=== PATIENT | male | born 1970 | race Caucasian/White ===

== ENCOUNTER 2018-02-21 09:38 | Emergency (ER) | payer BC ==
[2018-02-21 11:27] VITALS: BP 115/73
--- NOTE | 2018-02-21 11:44 | UC ---
Ear Complaint HPI - HPI Summary HPI Summary: Patient urgent care with complains of left ear pain is radiating down into his throat. Also complains of sore throat, does have nasal congestion - History of Current Complaint Chief Complaint: UCEar Stated Complaint: L EAR COMPLAINT Time Seen by Provider: 02/21/18 11:34 Hx Obtained From: Patient Onset/Duration: Gradual Onset, Lasting Days Severity Initially: Moderate Severity Currently: Moderate Pain Intensity: 6 Pain Scale Used: 0-10 Numeric Associated Signs/Symptoms: Positive: Hearing Loss - Allergies/Home Medications Allergies/Adverse Reactions: Allergies Allergy/AdvReac Type Severity Reaction Status Date / Time piperacillin [From Zosyn] Allergy Hives Verified 02/21/18 11:18 Sulfa (Sulfonamide Allergy Hives Verified 02/21/18 11:18 Antibiotics) tazobactam [From Zosyn] Allergy Hives Verified 02/21/18 11:18 PMH/Surg Hx/FS Hx/Imm Hx Previously Healthy: No Endocrine History: Hypothyroidism Cardiovascular History: Hypertension GI/ History: Gastroesophageal Reflux - Surgical History Surgical History: Yes Surgery Procedure, Year, and Place: right inguinal hernia at 6 yrs. Gallbladder. Melanoma removed RIGHT shoulder - Family History Known Family History: Positive: None - Social History Occupation: Employed Full-time Lives: With Family Alcohol Use: Weekly Substance Use Type: None Smoking Status (MU): Never Smoked Tobacco - Immunization History Most Recent Influenza Vaccination: never Most Recent Tetanus Shot: unknown Most Recent Pneumonia Vaccination: never Review of Systems Constitutional: Negative Skin: Negative Eyes: Negative ENT: Sore Throat, Ear Ache - Left, Nasal Discharge, Sinus Congestion Respiratory: Negative Cardiovascular: Negative Gastrointestinal: Negative Genitourinary: Negative Motor: Negative Neurovascular: Negative Musculoskeletal: Negative Neurological: Negative Psychological: Negative Is Patient Immunocompromised?: No All Other Systems Reviewed And Are Negative: Yes Physical Exam Triage Information Reviewed: Yes Appearance: Well-Appearing, No Pain Distress, Well-Nourished Vital Signs: Initial Vital Signs Temp 97.2 F 02/21/18 11:21 Pulse 86 02/21/18 11:21 Resp 16 02/21/18 11:21 BP 115/73 02/21/18 11:21 Pulse Ox 100 02/21/18 11:21 Vital Signs Reviewed: Yes Eye Exam: Normal Eyes: Positive: Conjunctiva Clear ENT Exam: Normal ENT: Positive: Normal ENT inspection, Hearing grossly normal, Pharyngeal erythema, Nasal congestion, TMs normal - Bilateral cerumen impactions. Both ears irrigated and cerumen removed with ears scope both TMs are within normal limits canals look fine. Patient reports better hearing, Uvula midline. Negative: Tonsillar swelling, Tonsillar exudate, Trismus, Muffled voice, Hoarse voice, Dental tenderness, Sinus tenderness Dental Exam: Normal Neck exam: Normal Neck: Positive: Supple, Nontender Respiratory Exam: Normal Respiratory: Positive: Chest non-tender, Lungs clear, Normal breath sounds, No respiratory distress, No accessory muscle use Cardiovascular Exam: Normal Cardiovascular: Positive: RRR, No Murmur, Pulses Normal, Brisk Capillary Refill Musculoskeletal Exam: Normal Musculoskeletal: Positive: Strength Intact, ROM Intact Neurological Exam: Normal Neurological: Positive: Alert, Muscle Tone Normal Psychological Exam: Normal Skin Exam: Normal Diagnostics - Laboratory Diagnostic Studies Completed/Ordered: Rapid strep negative Re-Evaluation - Re-Evaluation First Eval Change: Improved - Hearing better after cerumen removed sore throat and earache continues Ear Complaint Course/Dx - Course Course Of Treatment: Cerumen removal information provided, eustachian tube dysfunction information provided, Mucinex D Flonase nasal spray Tylenol ibuprofen for pain. follow with PCP when necessary - Differential Dx/Diagnosis Provider Diagnoses: Eustachian tube dysfunction, bilateral cerumen impactions resolved Discharge - Sign-Out/Discharge Documenting (check all that apply): Discharge/Admit/Transfer - Discharge Plan Condition: Stable Disposition: HOME Prescriptions: Fluticasone NASAL SPRAY 50MCG* [Flonase NASAL SPRAY 50MCG*] 2 spray BOTH NARES DAILY #1 btl Patient Education Materials: Decongestant/Expectorant (By mouth), Cerumen Impaction (ED), Barotitis Media (ED) Referrals: Jacqui Mcintyre MD [Primary Care Provider] - If Needed - Billing Disposition and Condition Condition: STABLE Disposition: HOME
== END 2018-02-21 12:51 | disposition home or self-care (01) ==
LOC: UCCORT 09:38
DX: H69.90 Unspecified Eustachian tube disorder, unspecified ear (principal); H61.23 Impacted cerumen, bilateral; Z88.0 Allergy status to penicillin; Z88.2 Allergy status to sulfonamides
CPT/HCPCS: 87651; 99213; G0463

== ENCOUNTER 2018-04-05 06:33 | Day surgery (SDC) | payer BC ==
[~2018-04-05 06:33] MED LIST: Buffered Lidocaine 0.9% SYRIN* 5 ML/SYR SYRINGE INTRADERM ONE; Famotidine IV* 10 MG/ML 2 ML (20 mg) IV ONE
[2018-04-05] MEDS ORDERED: Famotidine IV* 10 MG/ML 2 ML (20 mg) ONE (06:37)
[2018-04-05] MEDS ORDERED: Bupivacaine 0.25% SDV* 30 ML ONE (06:42)
[2018-04-05] MEDS ORDERED: Lidocaine 1% MPF wEPI 200,000* 30 ML SDV ONE (06:43)
[2018-04-05] MEDS ORDERED: ceFAZolin 2 GM PREMIX (*) 2 GM/50 ML BAG IVPB ONE (07:10)
[2018-04-05] MEDS ORDERED: fentaNYL* 50 MCG/ML 2 ML VIAL (100 MCG VIAL) ONE ×3 (07:27→08:59)
[2018-04-05] MEDS ORDERED: Midazolam* 1 MG/ML 5 ML VIAL (5 MG) ONE (07:27)
[2018-04-05] MEDS ORDERED: KETAMINE HCL* 50 MG/ML 10 ML VIAL ONE (07:54)
[2018-04-05] MEDS ORDERED: Succinylcholine* 20 MG/ML 10 ML VIAL ONE (08:36)
[2018-04-05] MEDS ORDERED: DiMENhydriNATE IV* 50 MG/ML VIAL ONE (08:36)
[2018-04-05] MEDS ORDERED: Dexamethasone IV* 4 MG/ML 1 ML (4 MG) ONE (08:36)
[2018-04-05] MEDS ORDERED: Propofol* 10 MG/ML 20 ML BTL IV PUSH ONE (08:36)
[2018-04-05] MEDS ORDERED: Ketorolac INJ* 30 MG/ML 1 ML VIAL ONE (08:36)
[2018-04-05] MEDS ORDERED: Lidocaine 2% MPF* 2 ML VIAL ONE (08:36)
[2018-04-05] MEDS ORDERED: HYDROmorphone INJ* 1 MG/ML CARPUJECT SYRINGE ONE (09:02)
[2018-04-05] MEDS ORDERED: Ondansetron INJ* 2 MG/ML VIAL IV PRN (09:09)
[2018-04-05] MEDS ORDERED: oxyCODONE TAB* 5 MG TAB PO PRN (09:09)
[2018-04-05] MEDS ORDERED: Naloxone* 0.4 MG/ML 1 ML VIAL IV PRN (09:09)
[2018-04-05] MEDS ORDERED: fentaNYL* 50 MCG/ML 2 ML VIAL (100 MCG VIAL) IV PRN (09:09)
[2018-04-05] MEDS ORDERED: Acetaminophen TAB* 325 MG PO PRN (09:09)
[2018-04-05] MEDS ORDERED: oxyCODONE/Acetamin 5/325 MG* TAB ONE (09:40)
[2018-04-05 10:24] VITALS: BP 153/94
--- NOTE | 2018-04-05 11:57 | OP ---
CC: PCP, Jacqui Mcintyre MD * DATE OF OPERATION: 04/05/18 - [facility] DATE OF : 72 SURGEON: Mukul Lamb MD. MANAGER TRAINEE: AMOS Thompson. An assistant track and field coach was needed for the entirety of this case to help with positioning, retraction and was utilized throughout all portions of the case. ANESTHESIOLOGIST: Dr. Denise. ANESTHESIA: General. PRE-OP DIAGNOSIS: Right knee grade 3 anterior cruciate ligament rupture, chronic with an acute displaced bucket handle medial meniscus tear. POST-OP DIAGNOSES: 1. 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 2. Lateral meniscal root fraying. OPERATIVE PROCEDURE: 1. Right knee arthroscopy with partial medial meniscectomy and partial lateral meniscectomy. 2. ACL reconstruction with BTB allograft. COMPLICATIONS: None. ESTIMATED BLOOD LOSS: Minimal. TOURNIQUET TIME: 0 minutes. IMPLANTS USED: One [employer] and Nephew SoftSilk 7 x 25 and one 9 x 25. INDICATIONS: Yaya Hebert is a 48-year-old male who has had previous injury to his ACL about 12 to 15 years ago while playing soccer, but then he recently reinjured on 03/30/18 and he since had a locked knee. He had limited range of motion, painful weightbearing. MRI was done that demonstrates displaced medial meniscus tear as well as grade 3 chronic ACL rupture. Risks and benefits of surgery were discussed at length to include but are not limited to bleeding, infection, damage to nerves, vessels, surrounding structures, wound nonhealing, persistent pain, need for further surgery, scarring, stiffness, incomplete relief of symptoms, risk of anesthesia, retear, scarring, persistent pain, need for surgery, risk of DVT, risk of anesthesia. DESCRIPTION OF PROCEDURE: The patient was greeted in the preoperative area by the attending surgeon. The correct extremity was marked, consent was confirmed. The patient brought back to the operating suite where he was placed in a supine position on the operating room table. He then underwent general anesthesia and LMA intubation, after which a non-sterile tourniquet was placed high on the proximal thigh. A lateral post was positioned. A gold bag was placed at the base of the bed. The right leg was prepped and draped in the usual sterile fashion beginning with chlorhexidine soap, scrub and alcohol wipe , and a final prep with ChloraPrep. After appropriate surgical pause indicating side and site of procedure, and administration of antibiotics, the knee was intraarticularly injected with 1% lidocaine with epi. The graft had been thawed during the prepping process and was being prepared on the back table by the assistant track and field coach to allow for bone block as a 9 x 24 femur and 10 x 30 of the tibia. The lateral portal was then made sharply with an 11 blade. The scope was introduced into the joint. The joint was examined. The patellofemoral joint had grade 0 changes with the exception inferiorly, there was a little bit of fraying of grade 1 and 2 of the inferior pole of the patella. The medial and lateral gutters were intact without any loose debris. The scope was brought to the notch. There was abundant fat pad. The anteromedial portal was made using 18-gauge needle for localization. A shaver was used to debride the fat pad that was present and the small ACL stump that was still there on the tibia. There was a displaced bucket handle medial meniscus tear which also had a horizontal split through that as well. This was then reduced but was found to be poor quality tissue and was not amenable for repair. Stacey and biters were then used to do a subtotal medial meniscectomy to remove the unstable flaps. At this point, the condyle was examined. There were grade 1 changes to the medial femoral condyle and medial plateau. Once the meniscectomy was completed, attention was directed laterally. The lateral femoral condyle had grade 0 to 1 changes. The lateral plateau had grade 1 changes, a very small area by the root that had grade 2 changes with some mild fraying. A shaver was used to debride this back as well as a look at the root of the meniscus that had fraying as well as the body. These were debrided back using a shaver. The remainder of the meniscus was intact. At this point, the knee was placed in 90 degrees and the lateral wall was prepared. The shaver and electrocautery device were used to skeletonize the lateral wall. There was a stenotic notch in the back. Therefore the brandin was used to do a small notchplasty to allow for better ACL passage. Once this was done, the starting awl was used to fly the provisional placement of the footprint. This was checked by changing the scope from the lateral to the medial portal to visualize its relation to the back wall. After this was done, attention was directed to the tibia. The tip to tip guide was set to about 52 degrees. A separate incision was made splitting the difference between the tibial tubercle on the posterior medial border of the tibia. The soft tissue was carefully dissected and the guide was placed again. This was then drilled to the center of the footprint using the distance from the PCL as well as the borders of the posterior aspect of the remaining meniscus as a landmark. Once the appropriate position was identified , this was overdrilled with a size 10 mm full-bore reamer. The shaver and rasp were used to rasp the tunnel to allow for easier graft passage. The tunnel was visualized and found to be in good position. At this point, the straight guidewire was placed into the knee into the provisional femoral tunnel. The knee was then hyperflexed. A Beath pin was then placed to the center of the femoral tunnel and this was then overdrilled with a 9 mm low profile reamer to a depth of about 27 mm. All excess bone and debris was removed. This tunnel had a good back wall and was found to have appropriate placement. The production support engineer was then used to notch the tunnel. Excess bone and debris was removed. A #2 Ethibond suture was placed through the eyelet of the Beath pin and advanced through the femur and out the lateral side. The sutures were then passed anterograde and the graft that had previously placed under tension was then brought to the surgery operating table and then passed under direct visualization to be well seated in the femoral tunnel. This was then secured with a 7 x 25 mm SoftSilk screw. This graft had good position. Images were taken. The knee was then cycled approximately 20 times with no shift or movement of the graft. The scope was brought back into the joint to make sure that the graft was still appropriately positioned. The knee was then placed in gentle flexion about 20 degrees with tension on the tibial sutures. The tibial portion was secured with a 9 x 25 mm screw. The screws were both placed with excellent purchase. The knee was then taken through range of motion from 0 to 130 degrees. At 140 degrees, Chaim was assessed and found to be stable. The scope was brought back to the joint and graft visualized and found to be in appropriate position. The knee was taken to full extension, there was no evidence of impingement anteriorly. The wounds were copiously irrigated and excess bone block in the tibial wound was then removed using a saw. The wounds were copiously irrigated. The portals were closed with 3-0 nylon. The tibia wound was closed with 2-0 Vicryl and 0 Monocryl and sterile dressing were applied. The wound was injected with 0.25% Marcaine plain. Sterile dressings, a Cryo/Cuff, and a hinged knee brace was applied locked in extension. He was awoken from anesthesia, transferred back in stable condition. POSTOPERATIVE PLAN: He will be weightbearing as tolerated. He will start physical therapy this week. DVT prophylaxis was considered but deferred due to no previous personal or family history. He will be discharged on pain medications and antibiotics. I will see the patient back in approximately 6 to 8 days. [id number]/CPS #: [id number] MTDD
== END 2018-04-05 10:21 | disposition home or self-care (01) ==
LOC: OREAST 06:33
PROVIDERS: ATTEND Orthopaedic Surgery
DX: M23.611 Other spontaneous disruption of anterior cruciate ligament of right knee (principal); S83.231A Complex tear of medial meniscus, current injury, right knee, initial encounter; S83.281A Other tear of lateral meniscus, current injury, right knee, initial encounter; X50.9XXA Other and unspecified overexertion or strenuous movements or postures, initial encounter; Y92.9 Unspecified place or not applicable; I10 Essential (primary) hypertension; G47.33 Obstructive sleep apnea (adult) (pediatric); E03.9 Hypothyroidism, unspecified
CPT/HCPCS: A9270-GY; C1713; C1776; J0330; J0690; J1100; J1170; J1240; J1885; J2001; J2250; J2704; J3010

== ENCOUNTER 2019-11-26 12:01 | Emergency (ER) | payer BC ==
--- NOTE | 2019-11-26 13:12 | ED ---
Adult Trauma - HPI Summary HPI Summary: Patient is a 49-year-old male who presents emergency department for evaluation after a fall from 4 feet. Patient states he was standing 4 feet on a ladder when he accidentally fell landing on his left side. Patient denies striking his head or loss of consciousness. He is not anticoagulated. No significant past medical history. Patient complains of mild left-sided rib pain, elbow and hip pain. Denies neck pain, shortness of breath, abdominal pain, numbness, tingling or weakness. Symptoms are mild to moderate in severity. Movement makes symptoms worse. Rest makes symptoms better. Patient took Aleve prior to arrival. - History of Current Complaint Chief Complaint: EDFall Stated Complaint: FALL INJURY PER PT Time Seen by Provider: 11/26/19 12:55 Hx Obtained From: Patient Pain Intensity: 7 - Allergy/Home Medications Allergies/Adverse Reactions: Allergies Allergy/AdvReac Type Severity Reaction Status Date / Time morphine Allergy Hives Verified 11/26/19 12:07 piperacillin [From Zosyn] Allergy Hives Verified 11/26/19 12:07 Sulfa (Sulfonamide Allergy Hives Verified 11/26/19 12:07 Antibiotics) tazobactam [From Zosyn] Allergy Hives Verified 11/26/19 12:07 PMH/Surg Hx/FS Hx/Imm Hx Previously Healthy: Yes Endocrine/Hematology History: Reports: Hx Thyroid Disease - hypothyroidism Denies: Hx Diabetes Cardiovascular History: Reports: Hx Hypertension - ON MEDICATION Denies: Hx Pacemaker/ICD Respiratory History: Reports: Hx Sleep Apnea - MILD GI History: Reports: Other GI Disorders History: Reports: Other Problems/Disorders - issues with residual over the past 3 years Denies: Hx Renal Disease Musculoskeletal History: Reports: Other Musculoskeletal History - RIGHT KNEE INJURY Sensory History: Denies: Hx Contacts or Glasses, Hx Hearing Aid Opthamlomology History: Denies: Hx Contacts or Glasses Neurological History: Denies: Hx Headaches, Hx Migraine, Hx Nerve Disease, Hx Seizures, Other Neuro Impairments/Disorders Psychiatric History: Denies: Hx Anxiety, Hx Depression, Hx Panic Disorder - Cancer History Cancer Type, Location and Year: SKIN REMOVED - Surgical History Surgery Procedure, Year, and Place: right inguinal hernia at 6 yrs. Gallbladder. Melanoma removed RIGHT shoulder. LASIK EYE SURGERY LEFT Hx Anesthesia Reactions: No Infectious Disease History: No Infectious Disease History: Denies: Traveled Outside the [place] in Last 30 Days - Family History Known Family History: Positive: None, Non-Contributory - Social History Occupation: Employed Full-time Lives: With Family Alcohol Use: Occasionally Substance Use Type: Reports: None Smoking Status (MU): Never Smoked Tobacco Have You Smoked in the Last Year: No Review of Systems Cardiovascular: Negative Negative: Chest Pain Respiratory: Negative Negative: Shortness Of Breath Gastrointestinal: Negative Negative: Abdominal Pain Genitourinary: Negative Positive: Other - Left elbow, hip and rib pain. Skin: Negative Neurological: Negative Negative: Headache, Weakness, Paresthesia, Numbness All Other Systems Reviewed And Are Negative: Yes Physical Exam Triage Information Reviewed: Yes Vital Signs On Initial Exam: Initial Vitals Temp Pulse Resp BP Pulse Ox 97.7 F 79 16 152/108 97 11/26/19 12:06 11/26/19 12:06 11/26/19 12:06 11/26/19 12:06 11/26/19 12:06 Vital Signs Reviewed: Yes Appearance: Positive: Well-Appearing - Pt. sitting up in bed in NAD. present. Skin: Positive: Warm, Dry Head/Face: Positive: Normal Head/Face Inspection Eyes: Positive: Normal, EOMI, MATTHEW Neck: Positive: Supple, Nontender - No midline tenderness. Respiratory/Lung Sounds: Positive: Clear to Auscultation, Breath Sounds Present Cardiovascular: Positive: Normal, RRR Abdomen Description: Positive: Nontender, Soft Musculoskeletal: Positive: Other - Pain on left lateral mid chest wall. Mild pain to left later elbow and hip. Full ROM. Neurovascular intact. Neurological: Positive: Normal, Alert, Oriented to Person Place, Time, CN Intact II-III Psychiatric: Positive: Affect/Mood Appropriate Procedures - Sedation Patient Received Moderate/Deep Sedation with Procedure: No Diagnostics - Vital Signs Vital Signs Temp Pulse Resp BP Pulse Ox 11/26/19 12:06 97.7 F 79 16 152/108 97 - Laboratory Lab Statement: Any lab studies that have been ordered have been reviewed, and results considered in the medical decision making process. Adult Trauma Course/Dx - Course Course Of Treatment: Patient with minor injuries after fall. Declines further pain medication. X-rays of elbow and hip are negative for acute findings per radiology. Chest and rib x-rays show a rate severity to the fifth rib per radiology. Suspect acute fracture given patient's pain location. Results discussed. Patient would like to continue Tylenol or ibuprofen for pain as directed. Ice intermittently. We'll follow-up with PCP and return to the ER symptoms change or worsen. Patient ambulatory without difficulty. - Diagnoses Differential Diagnosis/HQI/PQRI: Positive: Abrasion(s), Contusion(s), Fracture, Hematoma(s), Sprain, Strain Provider Diagnoses: Elbow contusion, Rib fracture, Contusion, hip Discharge ED - Sign-Out/Discharge Documenting (check all that apply): Patient Departure - Discharge Plan Condition: Good Disposition: HOME Patient Education Materials: Rib Fracture (ED) Forms: *Work Release Referrals: Jacqui Mcintyre MD [Primary Care Provider] - Additional Instructions: Follow up with PCP in one week Tylenol or Motrin for pain as directed Ice intermittently Return to ER if symptoms change - Billing Disposition and Condition Condition: GOOD Disposition: Home
[2019-11-26 14:51] VITALS: BP 127/85
== END 2019-11-26 14:51 | disposition home or self-care (01) ==
LOC: ED 12:01
DX: S22.32XA Fracture of one rib, left side, initial encounter for closed fracture (principal); S50.02XA Contusion of left elbow, initial encounter; S70.02XA Contusion of left hip, initial encounter; W11.XXXA Fall on and from ladder, initial encounter; Y92.9 Unspecified place or not applicable; E03.9 Hypothyroidism, unspecified; I10 Essential (primary) hypertension; Z85.820 Personal history of malignant melanoma of skin; Z88.0 Allergy status to penicillin; Z88.1 Allergy status to other antibiotic agents; Z88.2 Allergy status to sulfonamides; Z88.5 Allergy status to narcotic agent
CPT/HCPCS: 99282